=== PATIENT | female | born 1985 | race Two or more races ===

== ENCOUNTER 2022-10-05 07:35 | Emergency (ER) | payer MEDICAID ==
[~2022-10-05] VITALS: Ht 154.9 cm; Wt 63.5 kg
[2022-10-05 07:59] VITALS: BP 136/79
[2022-10-05] MEDS ORDERED: ACETAMINOPHEN 325MG TABLET PO ONE (09:15)
[2022-10-05] MEDS ORDERED: METOCLOPRAMIDE HCL 10MG TABLET PO ONE (09:15)
[2022-10-05] MEDS ORDERED: TOPUD PO (11:17)
== END 2022-10-05 11:34 | disposition home or self-care (01) ==
LOC: ER 07:35 → EDBD 07:35 → ER 11:34
DX: M54.2 Cervicalgia (principal); R51.9 Headache, unspecified; I25.2 Old myocardial infarction; Z90.49 Acquired absence of other specified parts of digestive tract; Z98.890 Other specified postprocedural states; Z86.73 Personal history of transient ischemic attack (TIA), and cerebral infarction without residual deficits
CPT/HCPCS: 70450; 72125; 81025; 99284; J8597